=== PATIENT | male | born 1950 | race Caucasian/White ===

== ENCOUNTER 2021-07-18 12:50 | Emergency (ER) | payer MEDICARE ==
[~2021-07-18] VITALS: Ht 177.8 cm; Wt 92.0 kg
[2021-07-18] MEDS ORDERED: MORPHINE SULFATE 4 MG/ML CPJ (NOT FOR IM USE) IV ONE ×3 (13:30→21:45)
[2021-07-18 14:29] LABS: HEMATOCRIT. 38.2 % (42.0-52.0); HEMOGLOBIN. 12.7 g/dL (14.0-18.0); MEAN CORPUSCULAR HEMOGLOBIN 33.3 pg (28.0-32.0); MEAN CORPUSCULAR VOLUME 100.4 fL (80.0-94.0); MEAN PLATELET VOLUME 10.1 fl (7.4-10.4); PLATELET 207 x1000/uL (130-400); RED BLOOD CELL COUNT 3.81 mill/uL (4.7-6.1); RED CELL DISTRIBUTION WIDTH 15.8 % (11.6-14.6)
[2021-07-18 14:37] LABS: CHLORIDE 108 mEq/L (98-107)
[2021-07-18 14:42] LABS: ETHANOL BLOOD < 10 mg/dL
[2021-07-18 14:44] LABS: PLATELET ESTIMATE NORMAL
[2021-07-18] MEDS ORDERED: ACETAMINOPHEN 325MG TABLET PO ONE (15:30)
[2021-07-18 22:12] VITALS: BP 134/77
== END 2021-07-18 22:40 | disposition short-term general hospital (02) ==
LOC: ER 12:50 → EDBD 12:50 → ER 22:40
DX: S72.091A Other fracture of head and neck of right femur, initial encounter for closed fracture (principal); W18.39XA Other fall on same level, initial encounter; Y93.89 Activity, other specified; Y92.89 Other specified places as the place of occurrence of the external cause; Y99.8 Other external cause status; R74.01 Elevation of levels of liver transaminase levels; E11.9 Type 2 diabetes mellitus without complications; I10 Essential (primary) hypertension; Z98.890 Other specified postprocedural states
CPT/HCPCS: 36415; 71045; 73502; 73552; 80053; 80320; 82962; 83880; 84484; 85025; 86850; 86900; 86901; 93005; 96374; 96376; 99285; J2270; G0480